=== PATIENT | female | born 1980 | race Caucasian/White ===

== ENCOUNTER 2016-07-27 13:08 | Emergency (ER) | payer OTHER ==
[~2016-07-27 13:08] MED LIST: CIPR500T89 PO; COLA100C3 PO; COUM2.5T11 PO; FLUC10TA PO; GABA-282 PO; HYDR25T PO; IMOD2TAB16 PO; INSUHUMDS SQ; INSULANT SC; KEFL500C7 PO; LISI25TA PO; M-VI27TA PO; MAGN30TA2 PO; PERC5TAB6 PO; PROT1TAB2 PO; TYLE325T5 PO
[2016-07-27 14:25] VITALS: BP 111/71
== END 2016-07-27 15:16 | disposition home or self-care (01) ==
LOC: EDBD 13:08 → M ED 14:08
DX: E10.649 Type 1 diabetes mellitus with hypoglycemia without coma (principal); Z79.4 Long term (current) use of insulin